=== PATIENT | female | born 1980 | race Asian ===

== ENCOUNTER 2017-05-29 11:22 | Inpatient (IN) | payer BC ==
[2017-05-29] MEDS ORDERED: MISOPROSTOL 200 MCG TAB PR ×2 (12:30→23:00)
[2017-05-29] MEDS ORDERED: METHYLERGONOVINE 0.2 MG INJ IM ×2 (12:30→23:00)
[2017-05-29] MEDS ORDERED: OXYTOCIN 30 UNITS/LR 500 ML IV ×5 (12:30→23:00)
[2017-05-29] MEDS ORDERED: CARBOPROST 250 MCG INJ IM ×2 (12:30→23:00)
[2017-05-29] MEDS ORDERED: CEFAZOLIN 2 GM/50 ML (PMX) 50 ML IV (12:30)
[2017-05-29 13:31] LABS: ADD MAN DIFF? NO
[2017-05-29 13:33] LABS: BASOPHIL # 0.1 10^3/ul (0.0-0.1); BASOPHILS % 0.7 % (0.0-2.0); EOSINOPHILS # 0.2 10^3/ul (0.0-0.5); HEMATOCRIT 35.8 % (37.0-47.0); HEMOGLOBIN 11.9 g/dl (12.0-16.0); LYMPHOCYTES # 1.5 10^3/ul (0.8-2.9); LYMPHOCYTES % 18.9 % (15.0-51.0); MEAN CORPUSCULAR HEMOGLOBIN 28.6 pg (29.0-33.0); MEAN CORPUSCULAR HGB CONC 33.2 g/dl (32.0-37.0); MEAN CORPUSCULAR VOLUME 86.1 fl (82.0-101.0); MONOCYTE # 0.8 10^3/ul (0.3-0.9); MONOCYTES % 9.5 % (0.0-11.0); NEUTROPHIL # 5.4 10^3/ul (1.6-7.5); NEUTROPHILS % 67.4 % (39.0-77.0); PLATELET COUNT 247 10^3/UL (140-415); RED BLOOD COUNT 4.16 10^6/ul (4.20-5.40)
[2017-05-29 13:57] LABS: PROTIME 12.2 Sec (11.9-14.9)
[2017-05-29 13:58] LABS: PARTIAL THROMBOPLASTIN TIME 26.8 Sec (25.0-35.0)
[2017-05-29 14:58] LABS: HEPATITIS B SURFACE ANTIGEN NEGATIVE (NEGATIVE)
[2017-05-29 15:45] LABS: RAPID PLASMA REAGIN NONREACTIVE (NR)
[2017-05-29] MEDS: LACTATED RINGER'S 1,000 ML IV (16:56)
[2017-05-29] MEDS ORDERED: PHENYLephrine (100 MCG/ML) 5ML SYG (17:14)
[2017-05-29] MEDS ORDERED: morphine SULFATE/PF (10 MG/10 ML) INJ (17:14)
[2017-05-29] MEDS ORDERED: FENTAnyl 50 MCG/ML VIAL (17:14)
[2017-05-29] MEDS ORDERED: DEXAMETHASONE 4 MG/ML 1 ML INJ (17:29)
[2017-05-29] MEDS ORDERED: ONDANSETRON 4 MG INJ (17:29)
[2017-05-29] MEDS ORDERED: NALBUPHINE HCL (10 MG/1 ML) INJ IV (19:30)
[2017-05-29] MEDS ORDERED: ONDANSETRON 4 MG INJ IV ×2 (19:30→23:00)
[2017-05-29] MEDS ORDERED: HYDROmorphONE 0.5 MG/0.5 ML SYG IV ×2 (19:30)
[2017-05-29] MEDS ORDERED: ZOLPIDEM 5 MG TAB PO ×2 (19:30→23:00)
[2017-05-29] MEDS ORDERED: NALOXONE (0.4 MG/ML) INJ IV (19:30)
[2017-05-29] MEDS ORDERED: TRIMETHOBENZAMIDE 100 MG/ML VIAL IM (19:30)
[2017-05-29] MEDS: OXYTOCIN 30 UNITS/LR 500 ML IV (21:27)
[2017-05-29] MEDS: KETOROLAC 30 MG INJ IV (21:47)
[2017-05-29] MEDS ORDERED: DIPHENHYDRAMINE 50 MG INJ IV (23:00)
[2017-05-29] MEDS ORDERED: LANOLIN 7 GM TUBE TOP (23:00)
[2017-05-29] MEDS: DIPHENHYDRAMINE 50 MG INJ IV (23:40)
[2017-05-29] MEDS: CEFAZOLIN 2 GM/50 ML (PMX) 50 ML IV (23:40)
[2017-05-30] MEDS: LACTATED RINGER'S 1,000 ML IV ×4 (01:31→22:58)
[2017-05-30] MEDS: IBUPROFEN 600 MG TAB PO ×5 (06:00→23:15)
[2017-05-30] MEDS: CEFAZOLIN 2 GM/50 ML (PMX) 50 ML IV ×2 (06:37→14:33)
[2017-05-30 10:05] LABS: ADD MAN DIFF? NO
[2017-05-30 10:06] LABS: WHITE BLOOD COUNT 13.7 10^3/ul (4.8-10.8)
[2017-05-30 10:06] LABS: BASOPHILS % 0.2 % (0.0-2.0); EOSINOPHILS # 0.1 10^3/ul (0.0-0.5); EOSINOPHILS % 0.7 % (0.0-7.0); HEMATOCRIT 28.5 % (37.0-47.0); HEMOGLOBIN 9.6 g/dl (12.0-16.0); LYMPHOCYTES # 1.5 10^3/ul (0.8-2.9); LYMPHOCYTES % 11.2 % (15.0-51.0); MEAN CORPUSCULAR HEMOGLOBIN 29.2 pg (29.0-33.0); MEAN CORPUSCULAR HGB CONC 33.7 g/dl (32.0-37.0); MEAN CORPUSCULAR VOLUME 86.6 fl (82.0-101.0); MEAN PLATELET VOLUME 10.6 fl (7.4-10.4); MONOCYTES % 7.1 % (0.0-11.0); NEUTROPHILS % 80.3 % (39.0-77.0); PLATELET COUNT 228 10^3/UL (140-415); RED BLOOD COUNT 3.29 10^6/ul (4.20-5.40); RED CELL DISTRIBUTION WIDTH 17.6 % (11.5-14.5)
[2017-05-30] MEDS: SENNA/DOCUSATE NA (8.6MG/50MG) TAB PO ×2 (10:07→21:16)
[2017-05-30] MEDS: KETOROLAC 30 MG INJ IV ×2 (10:07→17:07)
[2017-05-30] MEDS: INFLUENZA VIRUS VACCINE 0.5 ML (DISPENSING) IM* (14:32)
[2017-05-30] MEDS: OXYCODONE/ACETAMINOPHEN (5/325) TAB PO ×2 (21:16→23:15)
[2017-05-31] MEDS: IBUPROFEN 600 MG TAB PO ×4 (05:25→23:36)
[2017-05-31] MEDS: OXYCODONE/ACETAMINOPHEN (5/325) TAB PO ×2 (05:26→09:25)
[2017-05-31] MEDS ORDERED: INFLUENZA VIRUS VACCINE 0.5 ML (DISPENSING) IM* (09:00)
[2017-05-31] MEDS: SENNA/DOCUSATE NA (8.6MG/50MG) TAB PO ×2 (09:22→21:20)
[2017-06-01] MEDS: OXYCODONE/ACETAMINOPHEN (5/325) TAB PO ×3 (00:30→12:04)
[2017-06-01] MEDS: IBUPROFEN 600 MG TAB PO ×2 (05:27→12:03)
[2017-06-01] MEDS: SENNA/DOCUSATE NA (8.6MG/50MG) TAB PO (09:11)
[2017-06-01] MEDS: DIPHTH/TET/ACEL PERTUSS (ADULT) 0.5 ML VIAL IM* (11:05)
== END 2017-06-01 12:45 | disposition home or self-care (01) | DRG 766 ==
LOC: OBT 11:22 → L-D 11:22 → OBT 12:18 → L-D 12:10 → PP1 22:51
PROVIDERS: Obstetrics & Gynecology
PROC: 10D00Z1 Extraction of Products of Conception, Low, Open Approach (ICD-10-PCS; principal; 2017-05-29 17:00)
PROC: 0UB70ZZ Excision of Bilateral Fallopian Tubes, Open Approach (ICD-10-PCS; 2017-05-29 17:00)
DX: O34.211 Maternal care for low transverse scar from previous cesarean delivery (principal); O99.824 Streptococcus B carrier state complicating childbirth; Z37.0 Single live birth; Z3A.38 38 weeks gestation of pregnancy; Z30.2 Encounter for sterilization
CPT/HCPCS: 85025; 85610; 85730; 86592; 86850; 86900; 86901; 87340; 88302; 90686; 90715; 94760; 99464